=== PATIENT | female | born 2000 | race Two or more races ===

== ENCOUNTER 2019-11-03 10:00 | Inpatient (IN) | payer OTHER ==
[2019-11-03] MEDS: ELECTROLYTE-148 SOLN 1,000 ML IV SCH ×2 (12:30→17:40)
--- NOTE | 2019-11-03 13:18 | HP ---
Past Medical History - Primary Care Physician PCP:: Power Turcios (uncovered patient) - Admission Chief Complaint: Patient presenting to the hospital with painful regular contractions History of Present Illness: 19 y/o P0 @ 37+wks by EED of 11/22/19 as per patient presenting for rule out labor. Patient reports care at [facility] and no available documentation on admission. 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: No: Alzheimer's, CVA, Dementia, Migraine, Multiple Sclerosis, Peripheral Neuropathy, Parkinson's, Seizure, Syncope, TIA, Vertigo, Other Cardiovascular: No: AFIB, Aneurysm, Aortic Insufficiency, Aortic Stenosis, CAD, CHF, Deep Vein Thrombosis, HTN, Hyperlipdemia, [place], Mitral Insufficiency, Mitral Stenosis, Murmur, Pulmonary Hypertension, Other Pulmonary: No: Asthma, Bronchitis, Cancer, COPD, O2 Dependent, Pneumonia, Previously Intubated, Pulmonary Embolus, Pulmonary Fibrosis, Sleep Apnea, Other Gastrointestinal: No: Ascites, Cancer, Constipation, Crohn's Disease, Diverticulitis, Diverticulosis, Esophageal Varices, Gastritis, GERD, GI Bleed, Hemorrhoids, Hiatal Hernia, Inflamatory Bowel Disease, Irritable Bowel Disease, Pancreatitis, Peptic Ulcer Disease, Ulcerative Colitis, Other Hepatobiliary: No: Cirrhosis, Cholelithiasis, Cholecystitis, Choledocholithiasis, Hepatitis A, Hepatitis B, Hepatitis C, Other Renal/: No: Renal Failure, Renal Inusuff, BPH, Cancer, Hematuria, Hemodialysis, Neurogenic Bladder, Renal Calculi, UTI, Other Reproductive: No: Ectopic , Endometriosis, Fibroids, PID, Polycystic Ovary Syndrome, Postmenopausal, Other ...: 1 ...Para: 0 ...LMP: 02/14/19 ... Weeks Gestation by Dates: 37.2 ...EDC by Dates: 11/22/19 ...EDC by Sono: 11/22/19 Heme/Onc: No: Anemia, B12 Deficiency, Bleeding Disorder, Cancer, Current Chemotherapy, Current Radiation Therapy, Hemochromatosis, Hypercoaguable State, Myeloproliferative Synd, Sickle Cell Disease, Sickle Cell Trait, Thrombocytopenia, Other Infectious Disease: No: AIDS, C-Diff, Herpes Zoster, HIV, MRSA, STD's, Tuberculosis, VREF, Other Psych: No: Addictions, Anxiety, Bipolar, Depression, Panic, Psychosis, Schizophrenia, Other Musculoskeletal: No: Bursitis, Chronic low back pain, Hemiparesis, Hemiplegia, Osteoarthritis, Paraplegia, Other Rheumatology: No: Fibromyalgia, Gout, Lupus, Rheumatoid Arthritis, Sarcoidosis, Vasculitis, Other ENT: No: Allergic Rhinitis, Sinusitis, Other Endocrine: No: [place]'s Disease, [place]'s Disease, Diabetes Insipidus, Diabetes Mellitus, Hyperparathyroidism, Hyperthyroidism, Hypothyroidism, Osteopenia, SIADH, Other Dermatology: No: Basal Cell, Cellulitis, Eczema, Melanoma, Psoriasis, Squamous Cell, Other - Past Surgical History Past Surgical History: Yes: Appendectomy Hx Myomectomy: No Hx Transabdominal Cerclage: No - Smoking History Have you smoked in the past 12 months: No - Alcohol/Substance Use Hx Alcohol Use: No History of Substance Use: reports: None - Social History History of Recent Travel: No Family Medical History Family History: Unremarkable Review of Systems Findings/Remarks: Painful contractions and denies LOF, VB and reports +FM. She denies H/A, vision changes, CP, SOB, N/V, RUQ pain and leg swelling. Patient also denies any medical problems nor complications with . She reports recent sono revealed EFW of 6lbs 4 oz. - Review of Systems Constitutional: reports: No Symptoms Eyes: reports: No Symptoms HENT: reports: No Symptoms Neck: reports: No Symptoms Cardiovascular: reports: No Symptoms Respiratory: reports: No Symptoms Gastrointestinal: reports: No Symptoms Genitourinary: reports: No Symptoms Breasts: reports: No Symptoms Reported Musculoskeletal: reports: No Symptoms Integumentary: reports: No Symptoms Neurological: reports: No Symptoms Endocrine: reports: No Symptoms Hematology/Lymphatic: reports: No Symptoms Psychiatric: reports: No Symptoms Physical Exam - Maternity Vital Signs: Vital Signs Temperature 97.6 F 11/03/19 10:30 Pulse Rate 73 11/03/19 10:30 Respiratory Rate 18 11/03/19 10:30 Blood Pressure 135/93 11/03/19 10:30 O2 Sat by Pulse Oximetry (%) Constitutional: Yes: Well Nourished HENT: Yes: Atraumatic Neck: Yes: Supple Cardiovascular: Yes: Regular Rate and Rhythm Breast(s): Yes: Other - Abdominal Exam/OB Number of Fetuses: Single Presentation: Vertex (bedside sono: cephalic, fundal placenta) Contractions: Yes Regularity: Regular Intensity: Mod/Strong Monitor Mode: External Heart Rate (range): 140 Category: I Accelerations: Uniform Decelerations: None - Vaginal Exam/OB Vaginal Bleeding: No Speculum Exam: No (meconium stained fluid, spontaneous rupture) Dilatation (cm): 1 Effacement (%): 60 Amniotic Membrane Status: Ruptured Meconium: Moderate Presentation: Vertex/Position Station: -3 - Physical Exam Musculoskeletal: Yes: WNL Extremities: Yes: WNL Edema: Yes Edema: LLE: Trace, RLE: Trace Integumentary: Yes: WNL ...Motor Strength: WNL Psychiatric: Yes: Alert, Oriented Imaging - Results Ultrasound: Other (no available documentation at this point. Efforts have been made to acquire records. Nurse spoke via phone with patient's manager ship in an effort to obtain them.) Assessment/Plan 19 y/o G1 @ 37.2 wks by BRIDGETT of 11/22/19 as provided by patient, outside OBGYN care and no available record, patient reports sono on 11/01/19 with EFW of 6lbs and 4 oz. BP in mild to normal range and asymptomatic, PROM with meconium stained fluid, FHT is reactive and patient is in stable condition, patient is requesting pain control. Contractions pattern on tocometry unable to trace appropriately but 3-5 mins as noted at bedside. -Admit -Admission and PEC labs -Monitor BP -Continuous monitoring -Iv pain control -Obtain external records -GBS prophylaxis
[2019-11-03 13:21] LABS: EPI CELLS >36 /uL (0-25.1); HYALINE CASTS 5 /uL (0-3.1); URINE APPEARANCE CLOUDY; URINE BACTERIA 1398 /uL (0-1359); URINE BILIRUBIN NEGATIVE (NEGATIVE); URINE COLOR YELLOW; URINE GLUCOSE (UA) NEGATIVE (NEGATIVE); URINE KETONE NEGATIVE (NEGATIVE); URINE LEUK ESTERASE 1+ (NEGATIVE); URINE NITRITE NEGATIVE (NEGATIVE); URINE PROTEIN NEGATIVE (NEGATIVE); URINE RBC 22 /uL (0-23.9); URINE UROBILINOGEN 0.2 mg/dL (0.2-1.0); URINE WBC 13 /uL (0-25.8)
[2019-11-03] MEDS ORDERED: BUTORPHANOL TARTRATE 1 MG/ML VIAL ONE (13:31)
[2019-11-03] MEDS ORDERED: BUTORPHANOL TARTRATE 1 MG/ML VIAL IVPB ONE (13:33)
[2019-11-03] MEDS ORDERED: AMPICILLIN - 2 GM in SODIUM CHLORIDE 100 ML IVPB ONE (13:44)
[2019-11-03 14:00] LABS: BASO % 0.2 % (0-2.0); EOS % 0.7 % (0-4.5); HEMATOCRIT 38.2 % (32.4-45.2); HEMOGLOBIN 12.5 GM/dL (10.7-15.3); LYMPH % 18.5 % (8-40); MCHC 32.8 g/dl (32.0-36.0); MEAN CELL VOLUME 91.4 fl (80-96); MEAN PLT VOLUME 11.8 fl (7.5-11.1); MONO % 5.2 % (3.8-10.2); NEUT % 75.4 % (42.8-82.8); PLATELET COUNT 184 K/MM3 (134-434); RBC 4.18 M/mm3 (3.60-5.2); RDW 13.9 % (11.6-15.6); WHITE BLOOD COUNT 13.8 K/mm3 (4.0-10.0)
[2019-11-03 14:02] LABS: RETICULOCYTES 2.33 % (0.5-1.5)
[2019-11-03 14:33] LABS: URIC ACID 5.7 mg/dL (2.6-7.2)
[2019-11-03 14:36] LABS: ALBUMIN 2.9 g/dl (3.4-5.0); BILIRUBIN,TOTAL 0.3 mg/dL (0.2-1); BLOOD UREA NITROGEN 12.5 mg/dL (7-18); CALCIUM 9.2 mg/dL (8.5-10.1); CREATININE 0.8 mg/dL (0.55-1.3); POTASSIUM 4.1 mmol/L (3.5-5.1); TOT PROT 7.4 g/dl (6.4-8.2)
[2019-11-03 14:38] VITALS: BMI 35.4
[2019-11-03 14:45] LABS: ACTIVATED PTT 28.4 SECONDS (25.2-36.5); INR 0.87 (0.83-1.09); PROTHROMBIN TIME (PATIENT) 10.3 SEC (9.7-13.0)
[2019-11-03] MEDS ORDERED: BUPIVACAINE HCL/PF 0.25% (2.5MG/ML) 10 ML VIAL ONE (15:16)
[2019-11-03] MEDS ORDERED: FENTANYL/BUPIVACAINE/NS/PF - PCEA - 50 ML DISP.SYRIN EP ONE ×3 (15:18→22:23)
[2019-11-03] MEDS: FENTANYL/BUPIVACAINE/NS/PF - PCEA - 50 ML DISP.SYRIN EP SCH (15:30)
[2019-11-03] MEDS ORDERED: NALOXONE HCL 0.4 MG/ML VIAL IVPUSH PRN (15:52)
--- NOTE | 2019-11-03 18:26 | PN ---
Progress Note, Labor Vaginal Exam #1 Labor Exam Date: 11/03/19 Labor Exam Time: 18:25 Heart Rate (range): Cat I Dilatation: 2 Effacement (%): 100 Amniotic Membrane Status: Ruptured Presentation: Vertex/Position Station: -3 Remarks: Pt comfortable s/p epidural; poor pain tolerance IUPC placed to allow ease of monitoring of contractions Continue current management Greta Guido MD
[2019-11-03] MEDS ORDERED: PCA PUMP NR ONE (19:27)
[2019-11-03] MEDS ORDERED: OXYTOCIN 20 UNITS in 0.9% NS 20 UNIT/1,000 ML INFUS.BAG IV ONE (23:29)
[2019-11-03] MEDS ORDERED: OXYTOCIN 20 UNITS in 0.9% NS 20 UNIT/1,000 ML INFUS.BAG IV SCH (23:45)
--- NOTE | 2019-11-03 23:56 | PN ---
Delivery - Delivery Vaginal Delivery: Spontaneous Type of Anesthesia: Epidural Episiotomy/Laceration: None, Periurethral Extnsion/lac EBL (cc): 250 Delivery, Single - Stages of Labor Placenta: Yes: Spontaneous - Condition of Infant Rehabilitation Tech/Auditing Specialist Present: No Gender: Male Position: Left, OA - 1 Minute Total Score: 9 5 Minutes Total Score: 9 - Feeding Plan Initial Plan: Exclusive throughout hospitalization Remarks - Remarks Remarks: of VMI from BECKY position over intact perineum. 37 week . Epidural anesthesia. Thick meconium. Body nuchal, loosely delivered through. Spontaneous delivery of anterior shoulder and body. Infant placed on mother's abdomen. Cord clamped and cut by provider and FOB. Weight pending to allow skin to skin. Apgars 9/9. Spontaneous delivery of intact placenta with 3VC. Fundus firm. Perineum inpsected, periurethral laceration noted and repaired with 3-0 vicryl. Fundus firm. Hemostasis noted. EBL 250ml. Mother and baby doing well. Faviola Guido MD
[2019-11-03] MEDS ORDERED: BISACODYL 10 MG SUPP.RECT RC PRN (23:58)
[2019-11-03] MEDS ORDERED: BENZOCAINE 28 GM HEMORRHOIDAL OINTMENT TP PRN (23:58)
[2019-11-03] MEDS ORDERED: METHYLERGONOVINE MALEATE 0.2 MG/1 ML AMP IM PRN (23:58)
[2019-11-03] MEDS ORDERED: BENZOCAINE 20% 57 GM BOTTLE TP PRN (23:58)
[2019-11-03] MEDS ORDERED: IBUPROFEN 600 MG TABLET (FP) PO PRN (23:58)
[2019-11-03] MEDS ORDERED: ACETAMINOPHEN 325 MG TABLET (FP) PO PRN (23:58)
[2019-11-03] MEDS ORDERED: WITCH HAZEL 50% (TUCKS) 40 PAD/JAR PAD TP PRN (23:58)
[2019-11-04 03:54] LABS: COCAINE, UR NEGATIVE ng/ml (CUTOFF=300); METHADONE, UR NEGATIVE ng/ml (CUTOFF=300); OPIATES, URI NEGATIVE ng/ml (CUTOFF=300); PHENCYCLIDINE,URINE NEGATIVE ng/ml (CUTOFF=25); URINE AMPHETAMINES NEGATIVE ng/ml (CUTOFF=500); URINE BARBITURATES NEGATIVE ng/ml (CUTOFF=200); URINE BENZODIAZEPINES NEGATIVE ng/ml (CUTOFF=200)
[2019-11-04 07:59] LABS: BASO % 0.4 % (0-2.0); EOS % 0.2 % (0-4.5); HEMATOCRIT 33.4 % (32.4-45.2); HEMOGLOBIN 11.1 GM/dL (10.7-15.3); LYMPH % 13.1 % (8-40); MCH 30.3 pg (25.7-33.7); MCHC 33.2 g/dl (32.0-36.0); MEAN CELL VOLUME 91.2 fl (80-96); MEAN PLT VOLUME 11.2 fl (7.5-11.1); MONO % 5.4 % (3.8-10.2); NEUT % 80.9 % (42.8-82.8); PLATELET COUNT 171 K/MM3 (134-434); RBC 3.66 M/mm3 (3.60-5.2); RDW 13.8 % (11.6-15.6); WHITE BLOOD COUNT 22.1 K/mm3 (4.0-10.0)
--- NOTE | 2019-11-04 08:04 | PN ---
Post Progress Note - Subjective Subjective: Pain controlled. Bleeding < menses. No fevers/chills. Type of Delivery: Vital Signs: Vital Signs Temperature 98.4 F 11/04/19 01:55 Pulse Rate 88 11/04/19 01:55 Respiratory Rate 20 11/04/19 01:55 Blood Pressure 114/79 11/04/19 01:55 O2 Sat by Pulse Oximetry (%) 100 11/04/19 00:45 Uterus: Yes: Fundus below umbilicus Incision: Yes: Dressing dry and intact Abdomen/GI: Yes: Abdomen soft, Tolerating PO Lochia: Yes: Rubra Lochia, amount: Small Extremities: Yes: Calves non-tender Perineum: Yes: Laceration Activity: Ambulating - Labs Labs: CBC WBC 13.8 K/mm3 (4.0-10.0) H 11/03/19 13:17 RBC 4.18 M/mm3 (3.60-5.2) 11/03/19 13:17 Hgb 12.5 GM/dL (10.7-15.3) 11/03/19 13:17 Hct 38.2 % (32.4-45.2) 11/03/19 13:17 MCV 91.4 fl (80-96) 11/03/19 13:17 MCH 30.0 pg (25.7-33.7) 11/03/19 13:17 MCHC 32.8 g/dl (32.0-36.0) 11/03/19 13:17 RDW 13.9 % (11.6-15.6) 11/03/19 13:17 Plt Count 184 K/MM3 (134-434) 11/03/19 13:17 Plt Count 187 K/MM3 (134-434) 11/03/19 13:17 MPV 11.8 fl (7.5-11.1) H 11/03/19 13:17 Absolute Neuts (auto) 10.4 K/mm3 (1.5-8.0) H 11/03/19 13:17 Neutrophils % 75.4 % (42.8-82.8) 11/03/19 13:17 Lymphocytes % 18.5 % (8-40) 11/03/19 13:17 Monocytes % 5.2 % (3.8-10.2) 11/03/19 13:17 Eosinophils % 0.7 % (0-4.5) 11/03/19 13:17 Basophils % 0.2 % (0-2.0) 11/03/19 13:17 Nucleated RBC % 0 % (0-0) 11/03/19 13:17 Retic Count 2.33 % (0.5-1.5) H 11/03/19 13:17 Assessment/Plan 19yo P1 s/p , PPD#1 Routine PP care PO pain control F/U AM labs D/C to home PPD#2 Greta Guido MD
--- NOTE | 2019-11-04 09:33 | PN ---
Progress Note (short form) - Note Progress Note: POD #1 s/p with epidural anesthesia. Doing well, epidural catheter removed, tip intact.
[2019-11-04 09:50] LABS: ANISOCYTOSIS 0; MACROCYTOSIS 0; PLATELET ESTIMATE NORMAL
[2019-11-04 10:01] LABS: POC NITRAZINE POS
[2019-11-04] MEDS: PRENATAL VITAMINS W/ FOLIC ACID TABLET (FP) PO SCH (10:05)
[2019-11-04] MEDS: FENTANYL/BUPIVACAINE/NS/PF - PCEA - 50 ML DISP.SYRIN EP SCH (19:49)
[2019-11-04] MEDS: AMPICILLIN - 1 GM in SODIUM CHLORIDE 100 ML IVPB SCH (19:50)
[2019-11-04] MEDS ORDERED: SENNOSIDES/DOCUSATE COMBO (SENNA PLUS) TABLET (UD) PO PRN (22:00)
--- NOTE | 2019-11-05 07:29 | DS ---
Physical Exam-PER DIEM NURSE Vital Signs: Vital Signs Temperature 97.5 F L 11/04/19 22:00 Pulse Rate 87 11/04/19 22:00 Respiratory Rate 20 11/04/19 22:00 Blood Pressure 128/78 11/04/19 22:00 O2 Sat by Pulse Oximetry (%) 98 11/04/19 14:00 Constitutional: Yes: Well Nourished, No Distress, Calm Eyes: Yes: WNL, Conjunctiva Clear, EOM Intact HENT: Yes: WNL, Atraumatic, Normocephalic Neck: Yes: WNL, Supple, Trachea Midline Cardiovascular: Yes: WNL, Regular Rate and Rhythm Respiratory: Yes: WNL, Regular, CTA Bilaterally Gastrointestinal: Yes: WNL ...Rectal Exam: Yes: WNL Renal/: Yes: WNL External Genitalia: Yes: Normal Vaginal Exam: Yes: Normal ....Post : Yes: Uterus firm, Uterus non-tender, Slight lochia rubra Breast(s): Yes: WNL Musculoskeletal: Yes: WNL Extremities: Yes: WNL Edema: No Integumentary: Yes: WNL Neurological: Yes: WNL, Alert, Oriented ...Motor Strength: WNL Psychiatric: Yes: WNL, Alert, Oriented Labs: CBC, BMP 11/04/19 07:20 11/03/19 12:20 Delivery - Delivery Vaginal Delivery: Spontaneous Type of Anesthesia: Epidural Episiotomy/Laceration: None, Periurethral Extnsion/lac EBL (cc): 250 Delivery, Single - Stages of Labor Date 1st Stage Initiatied: 11/03/19 Time 1st Stage Initiated: 12:10 Date 2nd Stage Initiated: 11/04/19 Time 2nd Stage Initiated: 22:55 Date of Delivery: 11/03/19 Time of Delivery: 23:39 Time Placenta Delivered: 23:40 Placenta: Yes: Spontaneous - Condition of Infant Cyber Threat Analyst/Cardiopulmonary Specialist Present: No Infant Gender: Male Weight: 6 lb 4 oz Position: Left, OA Total Hours ROM (Hrs/Mins): 11h 49m - 1 Minute Total Score: 9 5 Minutes Total Score: 9 - [place] Feeding Plan Initial Plan: Exclusive throughout hospitalization Discharge Summary Problems reviewed: Yes Reason For Visit: LABOR ADMISSION Procedures: Principal: Plan of Treatment: follow up [facility] care 4 weeks Condition: Stable - Instructions Diet, Activity, Other Instructions: Regular Diet Follow up in 4 weeks for your visit Referrals: Faviola Guido MD [Staff Physician] - Disposition: HOME - Home Medications Comprehensive Discharge Medication List: Ambulatory Orders Breast Pump 1 each MC 5XD 30 Days #1 each 11/04/19 Ferrous Sulfate [Feosol] 325 mg PO DAILY #30 tablet 11/04/19 Ibuprofen 600 mg PO Q6H PRN #30 tablet 11/04/19
[2019-11-05 08:18] LABS: BASO % 0.3 % (0-2.0); EOS % 1.8 % (0-4.5); HEMATOCRIT 33.8 % (32.4-45.2); HEMOGLOBIN 11.1 GM/dL (10.7-15.3); LYMPH % 25.4 % (8-40); MCH 30.5 pg (25.7-33.7); MCHC 32.8 g/dl (32.0-36.0); MEAN CELL VOLUME 92.8 fl (80-96); MEAN PLT VOLUME 11.2 fl (7.5-11.1); MONO % 6.5 % (3.8-10.2); PLATELET COUNT 174 K/MM3 (134-434); RBC 3.64 M/mm3 (3.60-5.2); RDW 14.1 % (11.6-15.6); WHITE BLOOD COUNT 17.2 K/mm3 (4.0-10.0)
[2019-11-05] MEDS: PRENATAL VITAMINS W/ FOLIC ACID TABLET (FP) PO SCH (10:05)
[2019-11-05 11:19] VITALS: BP 124/76; PULSE 70; TEMP 97.9
[2019-11-05 22:09] LABS: OXYCODONE BLOOD Negative ng/mL (Cutoff:5); PCP BLOOD Negative ng/mL (Cutoff:8)
== END 2019-11-05 18:00 | disposition home or self-care (01) | DRG 560 ==
LOC: JDEL 10:00 → JLDR 12:10 → J3W 11-04 01:55
PROVIDERS: ADMIT Student in an Organized Health Care Education/Training Program; ATTEND Student in an Organized Health Care Education/Training Program
PROC: 10E0XZZ Delivery of Products of Conception, External Approach (ICD-10-PCS; principal; 2019-11-03)
PROC: 0UQMXZZ Repair Vulva, External Approach (ICD-10-PCS; 2019-11-03)
PROC: 0W8NXZZ Division of Female Perineum, External Approach (ICD-10-PCS; 2019-11-03)
DX: O71.82 Other specified trauma to perineum and vulva (principal); Z3A.37 37 weeks gestation of pregnancy; Z37.0 Single live birth
CPT/HCPCS: 36415; 59409; 80048; 80053; 80307; 81003; 82565; 82977; 83010; 83986-QW; 84156; 84450; 84460; 84550; 85025; 85032; 85045; 85610; 85730; 86762; 86780; 86850; 86900; 86901; 87340; 87389; U0003